=== PATIENT | male | born 1960 | race African-American/Black ===

== ENCOUNTER 2018-08-28 02:50 | Emergency (ER) | payer OTHER ==
[2018-08-28] MEDS: HYDROCODONE/APAP (10/325) TAB PO (03:32)
== END 2018-08-28 05:30 | disposition home or self-care (01) ==
LOC: E/R 02:50
DX: S29.012A Strain of muscle and tendon of back wall of thorax, initial encounter (principal); R40.2142 Coma scale, eyes open, spontaneous, at arrival to emergency department; R40.2252 Coma scale, best verbal response, oriented, at arrival to emergency department; R40.2362 Coma scale, best motor response, obeys commands, at arrival to emergency department; I10 Essential (primary) hypertension; W18.40XA Slipping, tripping and stumbling without falling, unspecified, initial encounter; Y92.89 Other specified places as the place of occurrence of the external cause
CPT/HCPCS: 99283; Z7502

== ENCOUNTER 2018-10-14 02:12 | Emergency (ER) | payer OTHER ==
[2018-10-14] MEDS: ASPIRIN 81 MG TAB PO (02:50)
[2018-10-14 02:51] LABS: ADD MAN DIFF? NO
[2018-10-14 02:52] LABS: BASOPHILS % 0.9 % (0.0-2.0); EOSINOPHILS % 1.3 % (0.0-7.0); HEMATOCRIT 36.1 % (42.0-52.0); HEMOGLOBIN 12.2 g/dl (14.0-18.0); LYMPHOCYTES # 0.7 10^3/ul (0.8-2.9); LYMPHOCYTES % 29.1 % (15.0-51.0); MEAN CORPUSCULAR HEMOGLOBIN 31.9 pg (29.0-33.0); MEAN CORPUSCULAR HGB CONC 33.8 g/dl (32.0-37.0); MEAN CORPUSCULAR VOLUME 94.3 fl (82.0-101.0); MEAN PLATELET VOLUME 9.1 fl (7.4-10.4); MONOCYTE # 0.3 10^3/ul (0.3-0.9); MONOCYTES % 11.5 % (0.0-11.0); NEUTROPHIL # 1.3 10^3/ul (1.6-7.5); NEUTROPHILS % 57.2 % (39.0-77.0); PLATELET COUNT 189 10^3/UL (140-415); RED BLOOD COUNT 3.83 10^6/ul (4.70-6.10); RED CELL DISTRIBUTION WIDTH 13.5 % (11.5-14.5)
[2018-10-14 02:52] LABS: WHITE BLOOD COUNT 2.3 10^3/ul (4.8-10.8)
[2018-10-14 03:20] LABS: INR 0.96; PROTIME 12.9 Sec (11.9-14.9)
[2018-10-14 03:26] LABS: ANION GAP 14 (5-13); BLOOD UREA NITROGEN 8 mg/dl (7-20); CALCIUM 8.5 mg/dl (8.4-10.2); CARBON DIOXIDE 24 mmol/L (21-31); CHLORIDE 104 mmol/L (97-110); CREATININE 0.75 mg/dl (0.61-1.24); Estimated GFR > 60 mL/min (>60); GLUCOSE 103 mg/dl (70-220); POTASSIUM 3.1 mmol/L (3.5-5.1); SODIUM 142 mmol/L (135-144)
[2018-10-14 03:37] LABS: B-TYPE NATRIURETIC PEPTIDE 23 PG/ML (0-125); TROPONIN-I < 0.012 ng/ml (0.000-0.120)
[2018-10-14] MEDS: SOD CHLORIDE 0.9% 500 ML IV (04:07)
== END 2018-10-14 04:48 | disposition home or self-care (01) ==
LOC: E/R 02:12
DX: R07.9 Chest pain, unspecified (principal); R06.02 Shortness of breath; R91.1 Solitary pulmonary nodule; F10.920 Alcohol use, unspecified with intoxication, uncomplicated; E87.6 Hypokalemia; D72.819 Decreased white blood cell count, unspecified; D64.9 Anemia, unspecified; R40.2142 Coma scale, eyes open, spontaneous, at arrival to emergency department; R40.2252 Coma scale, best verbal response, oriented, at arrival to emergency department; R40.2362 Coma scale, best motor response, obeys commands, at arrival to emergency department; I10 Essential (primary) hypertension
CPT/HCPCS: 36415; 71045; 80048; 80307; 83880; 84484; 85025; 85610; 93005; 99285-25

== ENCOUNTER 2018-12-19 20:17 | Emergency (ER) | payer OTHER ==
[2018-12-19] MEDS: MELOXICAM 15 MG TAB PO (22:04)
== END 2018-12-19 22:11 ==
LOC: E/R 20:17
DX: Z02.89 Encounter for other administrative examinations (principal); I10 Essential (primary) hypertension
CPT/HCPCS: 99283